=== PATIENT | male | born 1990 | race Caucasian/White ===

== ENCOUNTER 2016-12-21 09:52 | Outpatient (CLI) | payer OTHER ==
[~2016-12-21] VITALS: Ht 177.8 cm; Wt 71.0 kg
[~2016-12-21 09:52] MED LIST: ALBU2.5V4 IH; AMOX-355 PO; CETI10TA20 PO; HYDR-3812 PO; IPRA3AMP IH; PRED10TA22 PO
[2016-12-21 10:06] VITALS: BP 132/58
[2016-12-21 10:36] LABS: BASOPHILS % (AUTO) 0 % (0-10); EOSINOPHILS % (AUTO) 0 % (0-10); LYMPHOCYTES # (AUTO) 2.6 X 10^3 (1.0-4.0); LYMPHOCYTES % (AUTO) 17 % (12-44); MEAN CORPUSCULAR HEMOGLOBIN 30 PG (25-34); MEAN CORPUSCULAR HGB CONC 33 G/DL (32-36); MEAN CORPUSCULAR VOLUME 89 FL (80-99); MEAN PLATELET VOLUME 10.7 FL (7.4-10.4); MONOCYTES # (AUTO) 1.4 X 10^3 (0.0-1.0); MONOCYTES % (AUTO) 10 % (0-12); NEUTROPHILS # (AUTO) 10.7 X 10^3 (1.8-7.8); NEUTROPHILS % (AUTO) 72 % (42-75); PLATELET COUNT 349 10^3/uL (130-400); RED BLOOD COUNT 4.79 10^6/uL (4.35-5.85); RED CELL DISTRIBUTION WIDTH 13.3 % (10.0-14.5); WHITE BLOOD COUNT 14.8 10^3/uL (4.3-11.0)
[2016-12-21 10:56] LABS: ANION GAP 9 MMOL/L (5-14); BLOOD UREA NITROGEN 13 MG/DL (7-18); BUN/CREATININE RATIO 17; CALCIUM 9.1 MG/DL (8.5-10.1); CARBON DIOXIDE 25 MMOL/L (21-32); CHLORIDE 107 MMOL/L (98-107); CREATININE SERUM 0.78 MG/DL (0.60-1.30); GFR ESTIMATED > 60; GLUCOSE 89 MG/DL (70-105); SODIUM 141 MMOL/L (135-145)
--- NOTE | 2016-12-21 11:00 | Diagnostic Imaging Report ---
PA and lateral views of the chest Indication: Preoperative evaluation for sinus surgery Findings: The lungs are clear. The heart size is normal. There is no effusion or pneumothorax The mediastinum and ruth appear unremarkable. Impression: Unremarkable study. Dictated by: Dictated on workstation # [id number]
[2016-12-21 11:08] LABS: BAND NEUTROPHILS 1 %; BASOPHILS % (MANUAL) 1 %; EOSINOPHILS % (MANUAL) 1 %; LYMPHOCYTES % (MANUAL) 20 %; NEUTROPHILS % (MANUAL) 67 %
[2016-12-21 11:09] LABS: REACTIVE LYMPHOCYTES 2 %
== END 2016-12-21 14:00 | disposition home or self-care (01) ==
LOC: PREOP 09:52
PROVIDERS: ATTEND Otolaryngology Otolaryngology/Facial Plastic Surgery
DX: Z01.810 Encounter for preprocedural cardiovascular examination (principal); Z01.811 Encounter for preprocedural respiratory examination; Z01.812 Encounter for preprocedural laboratory examination; Z11.2 Encounter for screening for other bacterial diseases; J33.9 Nasal polyp, unspecified; J34.2 Deviated nasal septum; J34.3 Hypertrophy of nasal turbinates
CPT/HCPCS: 36415; 71020; 80048; 85007; 85027; 87081; 93005

== ENCOUNTER 2016-12-23 08:33 | Day surgery (SDC) | payer OTHER ==
[~2016-12-23] VITALS: Ht 177.8 cm; Wt 71.0 kg
[2016-12-23] MEDS ORDERED: AMPICILLIN/SULBACTAM 1.5 GM/NS 50 ML IVPB IV ONE ×2 (08:45)
[2016-12-23] MEDS ORDERED: HYDROCORTISONE 100 MG/2 ML (Solu-CORTEF) VIAL IV ONE (08:45)
[2016-12-23 08:50] VITALS: BP 130/77
[2016-12-23] MEDS ORDERED: FAMOTIDINE 20MG/2ML IV (PEPCID) IV ONE (09:00)
--- NOTE | 2016-12-23 09:19 | Progress Note-Pre Operative ---
Pre-Operative Progress Note H&P Reviewed The H&P was reviewed, patient examined and no changes noted. Date H&P Reviewed: Dec 23, 2016 Time H&P Reviewed: 09:00 Pre-Operative Diagnosis: Bilat Chronic Sinusitis with Nasal polyposis, Bialt chronic sinustsis, DASHAWN Tuttle MD Dec 23, 2016 9:18 am
[2016-12-23] MEDS ORDERED: PHENYLEPHRINE 0.5% NASAL SPR (NEO-SYNEPHRINE) REG ONE (09:33)
[2016-12-23] MEDS ORDERED: COCAINE HCL 4% 2 ML SYR ONE (09:33)
[2016-12-23] MEDS ORDERED: BSS 15 ML ONE (09:33)
[2016-12-23] MEDS ORDERED: LIDOCAINE/EPI 1%-1:100,000 (XYLOCAINE) 20ML ONE (09:34)
[2016-12-23] MEDS ORDERED: proPOfol 200 MG/20 ML (DIPRIVAN) VIAL IV ONE (09:36)
[2016-12-23] MEDS ORDERED: LACTATED RINGERS 1,000 ML IV ONE ×3 (09:36→11:19)
[2016-12-23] MEDS ORDERED: DEXAMETHASONE PF 10 MG/ML (DECADRON) VIAL ONE ×2 (09:36)
[2016-12-23] MEDS ORDERED: ROCURONIUM 50 MG/5 ML (ZEMURON) VIAL IV ONE (09:36)
[2016-12-23] MEDS ORDERED: SEVOFLURANE (ULTANE) 15 ML INHAL SOLN ONE ×3 (09:36→11:19)
[2016-12-23] MEDS ORDERED: ONDANSETRON 4 MG/2 ML (SDV) Z0FRAN ONE (09:36)
[2016-12-23] MEDS ORDERED: fentaNYL INJECTION 250 MCG/5 ML AMP ONE (09:36)
[2016-12-23] MEDS ORDERED: MIDAZOLAM 2 MG/2 ML (VERSED) VIAL ONE (09:36)
[2016-12-23] MEDS ORDERED: LIDOCAINE PF 2% 10 ML (XYLOCAINE) AMP ONE (09:36)
[2016-12-23] MEDS ORDERED: MEPERIDINE (DEMEROL) INJ 50 MG/ML ONE (09:45)
[2016-12-23] MEDS: LACTATED RINGERS 1,000 ML IV PRN ×2 (09:54→10:00)
[2016-12-23] MEDS ORDERED: MUPIROCIN 2% OINT 22 GM (BACTROBAN) TUBE ONE (10:02)
[2016-12-23] MEDS ORDERED: morphine INJ 10 MG/ML 1ML (SYR OR VIAL) ONE (10:49)
[2016-12-23] MEDS ORDERED: D5 1/2 NS W/KCL 20 MEQ/L 1,000 ML IV SCH (11:33)
[2016-12-23] MEDS ORDERED: NEOSTIGMINE (BLOXIVERZ ) 1 MG/1ML 10 ML VIAL ONE (11:34)
[2016-12-23] MEDS ORDERED: GLYCOPYRROLATE 0.2 MG/ML (ROBINUL) 2 ML VIAL ONE (11:34)
--- NOTE | 2016-12-23 11:34 | Progress Note-Post Operative ---
Post-Operative Progess Note Pre-Operative Diagnosis Bilat Chronic Sinusitis with Nasal polyposis, Bialt chronic sinustsis, Bila Post-Operative Diagnosis same Post-Op Procedure Note Date of Procedure: Dec 23, 2016 Name of Procedure: Bilat ESs, Septoplasty Anesthesia Type get Estimated blood loss (mL): 300cc Packing: DNP-Bilaterally Specimen(s) collected Bialt Nsal polyps and sinus disease DASHAWN SANDOVAL MD Dec 23, 2016 11:33 am
[2016-12-23] MEDS ORDERED: ONDANSETRON 4 MG/2 ML (SDV) Z0FRAN IV ONE (11:45)
[2016-12-23] MEDS ORDERED: morphine INJ 10 MG/ML 1ML (SYR OR VIAL) IV PRN (11:45)
[2016-12-23] MEDS ORDERED: ACETAMINOPHEN 325 MG TABLET/CAPLET (TYLENOL) PO PRN (11:45)
[2016-12-23] MEDS ORDERED: fentaNYL INJECTION 100 MCG/2 ML AMP IV PRN (11:45)
[2016-12-23] MEDS ORDERED: HYDROcodone/APAP 5 MG/325 MG (LORTAB) TAB PO PRN (11:45)
[2016-12-23] MEDS ORDERED: predniSONE 20 MG TAB PO NR (11:45)
[2016-12-23] MEDS ORDERED: PROMETHAZINE INJ 25 MG/ML (PHENERGAN) AMP IVP PRN (11:45)
[2016-12-23 12:30] VITALS: BP 134/86
[2016-12-23 13:00] VITALS: BP 125/82
[2016-12-23] MEDS ORDERED: HYDR-3812 PO (13:27)
[2016-12-23] MEDS ORDERED: PRD20T PO (13:27)
[2016-12-23] MEDS ORDERED: AMOX875T2 PO (13:28)
[2016-12-23 13:30] VITALS: BP 134/89
[2016-12-23 14:10] VITALS: BP 134/89
== END 2016-12-23 14:10 | disposition home or self-care (01) ==
LOC: SDC 08:33
PROVIDERS: ATTEND Otolaryngology Otolaryngology/Facial Plastic Surgery
DX: J32.2 Chronic ethmoidal sinusitis (principal); J32.0 Chronic maxillary sinusitis; J32.1 Chronic frontal sinusitis; J33.8 Other polyp of sinus; J34.2 Deviated nasal septum
CPT/HCPCS: 36415; 80306; 80320; 88305